=== PATIENT | male | born 1970 | race Caucasian/White ===

== ENCOUNTER 2024-07-01 05:55 | Day surgery (SDC) | payer BC, SELFPAY ==
[2024-06-30 07:30] VITALS: BMI 31.0
[2024-06-30 11:17] LABS: Basophils % (Auto) 0 % (0-2.5); Eosinophils # (Auto) 0.1 Thou/mm3 (0.0-0.5); Eosinophils % (Auto) 1 % (0-10); Hematocrit 44.6 % (41.0-53.0); Hemoglobin 15.7 g/dL (13.5-16.0); Immature Granulocytes % (Auto) 0 % (0-0); Immature Granulocytes Auto 0.02 Thou/mm3 (0.00-0.00); Lymphocytes # (Auto) 2.6 Thou/mm3 (1.0-4.8); Lymphocytes % (Auto) 38 % (10-50); Mean Corpuscular HGB Conc 35.2 g/dl (31.0-37.0); Mean Corpuscular Hemoglobin 32.5 pg (25.0-35.0); Mean Corpuscular Volume 92 fL (80-100); Monocytes # (Auto) 0.4 Thou/mm3 (0.0-0.8); Monocytes % (Auto) 6 % (0-12); Neutrophils # (Auto) 3.8 Thou/mm3 (1.8-7.7); Neutrophils % (Auto) 55 % (37-80); Nucleated Red Blood Cell % 0 /100 WBC (0); Platelet Count 242 Thou/mm3 (140-440); RDW Standard Deviation 43.2 fL (35.1-43.9); Red Blood Count 4.83 Miln/mm3 (4.50-5.90)
[2024-06-30 11:25] LABS: Partial Thromboplastin Time 28.2 Seconds (22.0-36.0)
[2024-06-30 11:37] LABS: Alanine Aminotransferase 16 U/L (10-49); Albumin, Serum 4.4 gm/dL (3.5-5.0); Alkaline Phosphatase 52 U/L (46-116); Anion Gap 7 (7-16); Aspartate Amino Transferase 17 U/L (0-34); BUN/Creatinine Ratio 20 Ratio (12-20); Bilirubin,Total 1.2 mg/dL (0.3-1.2); Blood Urea Nitrogen 16 mg/dL (9-23); Calcium 9.5 mg/dL (8.3-10.6); Calcium (Corrected) 9.5 mg/dL (8.5-10.1); Carbon Dioxide 26.6 mMol/L (20.0-31.0); Chloride 107 mMol/L (98-107); Creatinine (Component) 0.8 mg/dL (0.6-1.3); Estimated Creatinine Clearance 121.6 mL/min (>60); Globulin 2.2 gm/dL (2.3-3.5); Glucose 103 mg/dL (74-106); Osmolality,Calculated 282 (275-295); Sodium 141 mMol/L (136-145); Total Protein 6.6 gm/dL (5.7-8.2); eGFR > 60 See Note
[2024-07-01] VITALS (11 sets, daily range): BP systolic 102–139; BP diastolic 67–79; PULSE 62–84; RESP 12–22; TEMP 36.3–36.8; O2SAT 95–100; BMI 30.6
[2024-07-01] MEDS: RINGERS LACTATED 1000 ML 1,000 ML 20 ML IV (06:49)
--- NOTE | 2024-07-01 07:32 | SUR.PREOP ---
Patient expressed gratitude for prayer before their procedure.
--- NOTE | 2024-07-01 09:52 | PD.SUROPNT ---
Date of Procedure 07/01/24 Pre Op Diagnosis Symptomatic left inguinal hernia Post Op Diagnosis Same, indirect in type Procedure Repair of the left indirect inguinal hernia with high ligation of the sac and placement of 2 x 4 Marlex mesh Findings Patient was found to have a sac that was firmly adherent to the cord structures making it difficult to separate. It contained some omentum. Floor of the inguinal canal appeared strong and did not require reconstruction Procedure Description After the patient was given endotracheal anesthesia is lower abdomen was prepped with chloreprep solution and draped. Standard left groin incision was made in the external oblique was reached. Incision was made over the external oblique and the patient was found to have a sac next to the cord structures. The cord structures were encircled around a Duncan drain and the sac was easily . The sac was densely adherent to the cord structures making it difficult to separate from the remaining cord structures. It was opened and was found to contain omentum. Patient had a large opening in this hernial sac in the mouth of the internal ring was narrow. I suture ligated this with 2-0 chromic and then divided. Another 2-0 chromic suture ligation was used to prevent any slippage of the previous suture. Then I palpated the floor of the inguinal canal which appeared to be strong. I placed a 2 x 4 Marlex mesh and attached it medially to the pubic tubercle and laterally it was tucked underneath the external oblique after crossing the cord structures. I placed one stitch of Prolene lateral to the cord structures. Then external oblique was closed with running 2-0 Vicryl and subcutaneous tissues was approximated with 30 plain I injected half percent Marcaine with epinephrine for analgesia and the skin was closed with 4-0 Monocryl. Dressing was applied with Adaptic and 4 x 4 and the patient tolerated the procedure well and left operating room in stable condition. Anesthesia GETA Implants 2 x 4 Marlex mesh Pathology / specimen None IVF Infused 1,000 Estimated Blood Loss 20 Surgeon Amber Howard MD Surgical Staff Operation Date: 07/01/24 08:00 Case Staff [employer] SCIENTIST: Diomedes Millan RN First Assistant: Anjelica Gaona
--- NOTE | 2024-07-01 10:03 | SUR.PHASEI ---
0950: received pt from OR via [employer]. report received from ANGIE Cohen, ANGIE Smith and Diomedes MCLEOD. pt sleeping at this time.no s/s of pain or discomfort. no s/s of resp. distress or discomfort. dressing to left groin clean, dry and intact. no bleeding from dressing.
--- NOTE | 2024-07-01 10:08 | SUR.PHASEI ---
1008: pt able to open eyes when called his name. able to verbalize needs.
[2024-07-01] MEDS: MEPERIDINE INJ 50 MG/ML VIAL 25 MG IV ×3 (10:12→11:18)
--- NOTE | 2024-07-01 10:25 | SUR.PHASEI ---
1025: pt able to drink water with ice without any difficulty.
[2024-07-01] MEDS: HYDROmorphone INJ 2 MG/ML VIAL 0.4 MG IV (10:34)
[2024-07-01] MEDS: ONDANSETRON INJ 2 MG/ML INJ 2 ML 4 MG IV (11:12)
--- NOTE | 2024-07-01 11:28 | SUR.PHASEII ---
1111: pt able to change his clothes with but c/o pain. requested to be back to [facility] d/t dizziness and nausea. laid down to [facility].
--- NOTE | 2024-07-01 12:00 | SUR.PHASEII ---
1145: pt discharge to home via wheelchair. pt alert and oriented to name, place and time. no s/s of resp. distress or discomfort. denies any c/o pain or discomfort. dressing to left groin clean, dry and intact. no bleeding noted form dressing. discharge instructions given to and pt, verbalizes understanding. all belongings brought given back to patient.
== END 2024-07-01 11:45 | disposition home or self-care (01) ==
PROVIDERS: PCP Internal Medicine; Referring Provider Surgery; Visit Provider Surgery
PROC: (CPT 49650; principal; 2024-07-01 08:00)
DX: K40.90 Unilateral inguinal hernia, without obstruction or gangrene, not specified as recurrent (principal)
CPT/HCPCS: 49650; 36415; 80053; 85025; 85610; 85730; A4217; A4649; C1781; J0131; J2175; J2250; J2405; J2704; J3010; J3490; J7120; J1596